=== PATIENT | female | born 1995 | race African-American/Black ===

== ENCOUNTER → 2018-06-30 | Outpatient (CLI) | payer OTHER | LOC: M RAD 09:25 | DX: R92.8 Other abnormal and inconclusive findings on diagnostic imaging of breast (principal) | CPT/HCPCS: 77066 ==

== ENCOUNTER → 2018-07-15 | Outpatient (CLI) | payer OTHER ==
[~2018-07-15] MED LIST: LIDOCAINE 1% MDV 20ML VIAL As Ordered ONE
--- NOTE | 2018-07-15 12:07 | REP ---
POST BIOPSY MAMMOGRAM RIGHT BREAST: Postbiopsy mammogram right breast performed in the MLO and CC projections, following ultrasound guided biopsy of a right breast nodule at 2-o'clock position. A metallic clip is seen anteriorly at the site of the biopsy medially. Electronically Signed by Clark Robledo MD 07/15/2018 12:22 P
--- NOTE | 2018-07-19 15:09 | REP ---
ULTRASOUND GUIDED RIGHT BREAST BIOPSY The procedure was performed under the direct supervision of Dr. Robledo The patient has a history of a 9 x 7 x 4 mm hypoechoic nodule in the 2 o'clock position of the right breast seen on a previous ultrasound dated 06/30/2018. The risks and benefits of the procedure were explained to the patient and informed consent was obtained. The right breast nodule was localized using ultrasound guidance. The skin was prepped and draped in a sterile fashion. 1% Xylocaine was used as a local anesthetic. Using ultrasound guidance an 18-gauge coaxial needle was inserted and six core biopsy samples were obtained. A marker clip was placed at the biopsy site. The patient tolerated the procedure well and there were no immediate complications. After the appropriate amount of monitored convalescence the patient was discharged from the department. Reviewed by SHIELA Gavin 07/15/2018 05:09 P Electronically Signed by Clark Robledo MD 07/19/2018 03:00 P
== END ==
LOC: M RADPRO 09:34
PROVIDERS: ATTEND Internal Medicine
DX: D24.1 Benign neoplasm of right breast (principal); Z79.3 Long term (current) use of hormonal contraceptives

== ENCOUNTER 2019-09-27 09:43 | Inpatient (IN) | payer OTHER ==
[2019-09-27] VITALS (10 sets, daily range): BP systolic 90–124; BP diastolic 54–81
[~2019-09-27] VITALS: Ht 154.9 cm; Wt 67.4 kg
[2019-09-27] MEDS ORDERED: PENICILLIN G POTASSIUM IV 5 MU in D5W MINI-BAG PLUS 100 ML IV STA (10:33)
[2019-09-27] MEDS ORDERED: LACTATED RINGER'S 1000 ML IV STA (10:33)
[2019-09-27] MEDS ORDERED: LR 1,000 ML IV SCH (10:33)
[2019-09-27] MEDS ORDERED: SIMETHICONE 80 MG CHEW TAB PO PRN (10:45)
[2019-09-27] MEDS ORDERED: MOM 30ML SUSPENSION UDC PO PRN ×2 (10:45→20:30)
[2019-09-27] MEDS ORDERED: CALCIUM CARBONATE 500 MG CHEW U/D PO PRN (10:45)
[2019-09-27] MEDS ORDERED: BUTORPHANOL 2 MG/ML INJ (J0595) IV PRN ×2 (10:45→20:30)
--- NOTE | 2019-09-27 11:07 | HPEPDOC ---
Obstetrical History & Physical General Date of Admission Sep 27, 2019 at 10:32 History of Present Illness Patient is a 23-year-old at 39.0 weeks by LMP, confirmed by 11 week ultras ound. Patient comes in with complaints of contractions every 2-5 minutes since 5 AM, which have become stronger and more consistent. A little bit of bloody show, but no heavy bleeding. No loss of fluid. Good movement. 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 Past Medical History Medical History none Surgical History: Denies/None Family History Significant Family History: No pertinent family hx Social History Marital Status: Family situation: Spouse/partner home Psychosocial History: No pertinent psych hx * Smoker: non-smoker Alcohol: Denies Drugs: denies Abuse Violence Screening Have you been hit/kicked/slapp: No Have you been sexually assault: No Imunizations Tdap status: current Influenza Status: current Allergies Coded Allergies: No Known Allergies (Unverified , 09/27/19) Physical Examination Physical Examination GENERAL: Alert and oriented times three. BREAST: . ABDOMEN: Gravid and non-tender to touch. FETUS: Is vertex (VTX) by sterile vaginal examination (SVE), EFW 3200gm by Dago. EXTREMITIES: No edema. Vital Signs/I&O Vital Signs Date Time Temp Pulse Resp B/P (MAP) Pulse Ox O2 Delivery O2 Flow Rate FiO2 09/27/19 10:14 98.1 97 20 101/69 (80) Room Air Laboratory Data 24H LABS Laboratory Tests 2 09/27/19 10:39: Serology Scanned Report Hepatitis B Testing Pertinent Laboratoy Data Blood Type: A+ RBC Antibody Screen: Negative HIV: Negative Hepatitis B: Positive Rapid Plasma Reagin: Nonreactive Rubella: Immune Varicella: Immune Chlamydia/Gonorrhea: Negative Group B Streptococcus: Positive Glucose Tolerance Test: 116 Anatomy Ultrasound Ultrasound Date: Jun 19, 2019 Placenta Location: Anterior Normal Anatomy: Yes Placenta Previa: No Estimated Weight (grams): 823 Vaginal Examination Dilation: 8 cm Effacement: 80% Station: -1 Cervical Consistency: Soft Cervical Position: Middle Presentation: Cephalic presentation Assessment Heart Rate (FHR): 120 Variability: Moderate Accelerations: Positive Decelerations: None Tocometer Contractions: Yes Frequency: regular, every 2-5 min. Strength: palpated as strong Multi-drug resistant Organism: No history of MDRO Assessment/Plan Assessment Patient is a 23-year-old at 39.0 weeks by LMP, confirmed by 11 week ultrasound. Admit for labor and expect delivery by . Pain management per patient preference, which was discussed with her. I discussed risks of with patient of failure with section, distress, bleeding, infection, , vaginal or perineal or neighboring organ tear. Currently, fetus is reassuring. GBS is. Positive, there is a need for antibiotics, so penicillin will be given. Plan Admit and orient. 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 Diet: Clear liquids. Group B Streptococcus (GBS) positive with need of penicillin prophylaxis. Labs and intravenous (IV) per unit protocol. Counseled on Pitocin and induction of labor (IOL). Lactated Ringers (LR): Bolus 500 mL, then at 125 mL/hr. Anticipate normal spontaneous delivery (). Pain management per patient desire. Marce Weldon MD Sep 27, 2019 11:07
[2019-09-27] MEDS ORDERED: OXYTOCIN 30 UNITS IN 0.9% NaCl 500ML IV BAG (J2590) As Ordered ONE (11:08)
[2019-09-27 11:28] LABS: BASO % 0.3 % (0.0-1.0); EOS % 0.2 % (0.0-3.0); HEMATOCRIT 39.1 % (36.0-47.0); HEMOGLOBIN 12.6 g/dl (12.0-15.5); LYMPH # 1.2 10^3/uL (1.5-5.0); LYMPH % 12.9 % (24.0-44.0); MEAN CORPUSCULAR HEMOGLOBIN 26.1 pg (27.0-33.0); MEAN CORPUSCULAR HGB CONC 32.2 g/dl (32.0-36.5); MONO # 0.5 10^3/uL (0.0-0.8); MONO % 5.3 % (0.0-5.0); NEUTROPHILS # 7.4 10^3/uL (1.5-8.5); NEUTROPHILS % 79.4 % (36.0-66.0); PLATELET COUNT, AUTOMATED 161 10^3/uL (150-450); RED BLOOD COUNT 4.83 10^6/uL (4.00-5.40); WHITE BLOOD COUNT 9.3 10^3/uL (4.0-10.0)
--- NOTE | 2019-09-27 13:18 | IPNPDOC ---
Text Note Date of Service The patient was seen on 09/27/19. NOTE Patient uncomfortable with contractions, but tolerating. No loss of fluid. Good movement. FHT: Category 1, baseline 130s, reactive, no decels, contractions q2-5min. SVE: large BBOW, 9/100/0. Discussed plan of awaiting full antibiotics then AROM. Fetus reassuring now. VS,Fishbone, I+O VS, Fishbone, I+O Laboratory Tests 09/27/19 11:11 Vital Signs Date Time Temp Pulse Resp B/P (MAP) Pulse Ox O2 Delivery O2 Flow Rate FiO2 09/27/19 10:14 98.1 97 20 101/69 (80) Room Air Marce Weldon MD Sep 27, 2019 13:18
[2019-09-27] MEDS ORDERED: PENICILLIN G POTASSIUM IV 2.5 MU in IV 1 EA IV SCH (15:00)
[2019-09-27] MEDS ORDERED: PILL CUTTER 1 EACH XX PRN (15:30)
[2019-09-27] MEDS ORDERED: OXYTOCIN DRIP 30 UNITS in IV 1 EA IV SCH (20:17)
--- NOTE | 2019-09-27 20:24 | DNPDOC ---
[facility] Delivery Note Delivery Note DATE OF DELIVERY: 09/27/2019 PREDELIVERY DIAGNOSIS: 39-0/7 weeks' gestation and labor. POST DELIVERY DIAGNOSIS: Delivered. PROCEDURE: Spontaneous vaginal delivery. 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 ESTIMATED BLOOD LOSS: 500 mL. FINDINGS: 6 pound 9 ounce 3980gm girl , Score 9/10, nuchal cord times x1. DELIVERY SUMMARY: Patient is a 24-year-old 1 now para 1 who was admitted to labor and delivery for active labor for 14hours. Baby girl head was delivered without difficulty over intact perineum in DALE position at 1857. The nose and mouth were bulb suctioned. x1 nuchal cord was noted. The shoulders were then delivered without difficulty. Cord was then clamped x2 and cut. Infant was handed on mother's belly. Pitocin bolus was started. Perineum and vagina was inspected and found to have a deep left sulcus and a 2nd degree laceration. This was repaired with 1% lidocaine 15cc with 2-0 chromic. The placenta was then delivered at 1907 spontaneously intact. Cord had a 3 vessel cord. EBL was 500mL. The vagina and perineum were reinspected and no further lacerations were found and hemostasis was good. Fundus was firm. Patient tolerated delivery well. Marce Weldon MD Sep 27, 2019 20:24
[2019-09-27] MEDS ORDERED: ACETAMINOPHEN 500 MG TAB PO PRN (20:30)
[2019-09-27] MEDS ORDERED: RHOGAM 300 MCG (1500 IU) INJ (J2790) IM SCH (20:30)
[2019-09-27] MEDS ORDERED: ANUSOL HC CREAM 30GM TOP PRN (20:30)
[2019-09-27] MEDS ORDERED: DIBUCAINE 1% OINTMENT 30GM TOP PRN (20:30)
[2019-09-27] MEDS ORDERED: METHYLERGONOVINE MALEATE 0.2 MG TAB PO PRN (20:30)
[2019-09-27] MEDS ORDERED: LIDOCAINE 1% MDV 20ML VIAL INFIL ONE (20:30)
[2019-09-27] MEDS ORDERED: IBUPROFEN 600 MG TAB PO PRN (20:30)
[2019-09-27] MEDS ORDERED: MEASLES,MUMPS,RUBELLA VACCINE INJ (MMR-II) (90707) SC SCH (20:30)
[2019-09-27] MEDS: DOCUSATE SODIUM 100 MG CAP PO SCH (22:52)
[2019-09-28] MEDS: ACETAMINOPHEN 500 MG TAB PO PRN ×3 (01:31→20:46)
[2019-09-28 05:59] VITALS: BP 97/53
--- NOTE | 2019-09-28 06:20 | IPNPDOC ---
Progress Note Date of Service: Sep 28, 2019 Day#: 1 Progress Note SUBJECT: Patient is a 24-year-old 1 now Para 1 status post uncomplicated spontaneous vaginal delivery with extensive left sulcus laceration repair and 2nd degree laceration repair, doing well day # 1. She has been ambulating, voiding spontaneously without issue and tolerating regular diet. Breast feeding without issue. Reports lochia is like a normal period. Patient is ambulating well. Reports some cramping with . Denies any pain. OBJECTIVE: VITAL SIGNS: Within normal limits, afebrile. Alert and oriented times three. Breast without erythema or masses Breath sounds clear to auscultation. Heart rate: Regular rate and rhythm, no murmurs, rubs or gallops. Abdomen: Fundus firm at U-2. Soft, NTTP. Minimal lochia. Lower extremeties without edema or tenderness. ASSESSMENT: Patient is a 24-year-old 1 now Para 1 status post uncomplicated spontaneous vaginal delivery with extensive left sulcus laceration repair and 2nd degree laceration repair, doing well day # 1.Vitals within normal limits, afebrile, hemodynamically stable with no evidence of infection. PLAN: 1. Continue care. 2. Tylenol and Motrin for pain. 3. Encourage breast feeding and ambulation. VS, I&O, 24H, Fishbone Vital Signs/I&O Vital Signs Date Time Temp Pulse Resp B/P (MAP) Pulse Ox O2 Delivery O2 Flow Rate FiO2 09/28/19 05:59 98.5 82 16 97/53 (68) 100 Room Air I&O- Last 24 Hours up to 6 AM 09/28/19 06:00 Intake Total 200 ml Output Total 1100 ml Balance -900 ml Laboratory Data 24H LABS Laboratory Tests 2 09/27/19 10:39: Serology Scanned Report Hepatitis B Testing 09/27/19 11:11: Immature Granulocyte % (Auto) 1.9, Neutrophils (%) (Auto) 79.4H, Lymphocytes (%) (Auto) 12.9L, Monocytes (%) (Auto) 5.3H, Eosinophils (%) (Auto) 0.2, Basophils (%) (Auto) 0.3, Neutrophils # (Auto) 7.4, Lymphocytes # (Auto) 1.2L, Monocytes # (Auto) 0.5, Eosinophils # (Auto) 0.0, Basophils # (Auto) 0.0, Nucleated Red Blood Cells % (auto) 0.0, Syphilis Serology NONREACTIVE CBC/BMP Laboratory Tests 09/27/19 11:11 Marce Weldon MD Sep 28, 2019 06:20
[2019-09-28] MEDS: DOCUSATE SODIUM 100 MG CAP PO SCH ×2 (08:22→20:46)
[2019-09-28] MEDS: PRENATAL VITAMINS CHEWABLE TABLET PO SCH (08:22)
[2019-09-28] MEDS: IBUPROFEN 800 MG TAB PO PRN ×2 (08:22→21:55)
[2019-09-28 18:00] VITALS: BP 128/81
[2019-09-29 06:00] VITALS: BP 98/51
--- NOTE | 2019-09-29 07:04 | IPNPDOC ---
Progress Note Date of Service: Sep 29, 2019 Day#: 2 Progress Note Patient is a 24-year-old 1 now Para 1 status post uncomplicated sponta neous vaginal delivery with extensive left sulcus laceration repair and 2nd degree laceration repair, ppd #2. She has been ambulating, voiding spontaneously without issue and tolerating regular diet. Breast feeding without issue. Reports lochia is like a normal period. Patient is ambulating well. Reports some cramping with . Undecided on contraceptive at this time. OBJECTIVE: VITAL SIGNS: Within normal limits, afebrile. Alert and oriented times three. Abdomen: Fundus firm at U-1. Soft, NTTP. LE: no edema/erythema/tenderness A/P PPD #2, doing well. discharge instructions given. routine ppc. d/c home today. VS, I&O, 24H, Fishbone Vital Signs/I&O Vital Signs Date Time Temp Pulse Resp B/P (MAP) Pulse Ox O2 Delivery O2 Flow Rate FiO2 09/29/19 06:00 98.0 92 18 98/51 (67) 09/28/19 15:58 Room Air 09/28/19 05:59 100 VIRGINIA CHAVIRA DO Sep 29, 2019 07:04
--- NOTE | 2019-09-29 07:19 | OBDS ---
[facility] Obstetrical Discharge Sum. Obstetrical Discharge Summary Slab Miller Operator/Provider: Marce Weldon MD : 1 Term: 1 Pre-term: 0 Abortions: 0 Livin VDRL: Non-Reactive Rh: Positive Rubella: Immune Sex: Female Weight: pounds (6), ounces (1) Anesthesia: Regional Anesthesia A/P, Post Course List any complications Admission diagnosis: 1) Gravid at 39 wks 2) Labor Discharge diagnosis: 1) status post spontaneous vaginal delivery 2) midline second decree and left sulcal vaginal laceration repaired Condition at Discharge: stable Discharge Instructions: Home Activity: As tolerated Diet: Regular Medications: Filled At [place] [place] Follow-up: [address] Weldon Hospital Course: Patient admitted at 39wks gestation in active labor. She progressed to have a spontaneous vaginal delivery. She had a midline second degree and left sulcal laceration repaired. Remainder of her course uncomplicated and she was discharged on day #2. VIRGINIA CHAVIRA DO Sep 29, 2019 01:48
[2019-09-29] MEDS: IBUPROFEN 800 MG TAB PO PRN (07:48)
[2019-09-29] MEDS: PRENATAL VITAMINS CHEWABLE TABLET PO SCH (09:39)
[2019-09-29] MEDS: DOCUSATE SODIUM 100 MG CAP PO SCH (09:39)
== END 2019-09-29 14:10 | disposition home or self-care (01) | DRG 807 ==
LOC: M LDO 09:43 → M LDI 10:32 → M OBS 23:36
PROVIDERS: ADMIT Obstetrics & Gynecology; ATTEND Obstetrics & Gynecology
PROC: 10E0XZZ Delivery of Products of Conception, External Approach (ICD-10-PCS; principal; 2019-09-27)
PROC: 0KQM0ZZ Repair Perineum Muscle, Open Approach (ICD-10-PCS; 2019-09-27)
PROC: 10907ZC Drainage of Amniotic Fluid, Therapeutic from Products of Conception, Via Natural or Artificial Opening (ICD-10-PCS; 2019-09-27)
DX: O99.824 Streptococcus B carrier state complicating childbirth (principal); Z37.0 Single live birth; Z3A.39 39 weeks gestation of pregnancy; O69.81X0 Labor and delivery complicated by cord around neck, without compression, not applicable or unspecified; O70.1 Second degree perineal laceration during delivery